=== PATIENT | female | born 1950 | race Caucasian/White ===

== ENCOUNTER → 2016-03-09 | Outpatient (CLI) | payer MEDICARE | LOC: GMAL 11:38 | PROVIDERS: ATTEND Family Medicine | DX: K85.90 Acute pancreatitis without necrosis or infection, unspecified (principal) ==

== ENCOUNTER → 2016-03-21 | Outpatient (CLI) | payer MEDICARE ==
--- NOTE | 2016-03-21 14:48 | MRI ---
EXAM DESCRIPTION: MR ABDOMEN WITHOUT IV CONTRAST CLINICAL HISTORY: 66 y/o F, ABD PAIN COMPARISON: Ultrasound from May 08, 2014. TECHNIQUE: Multi planar, multi sequence imaging of the abdomen was performed without contrast as per the MRCP protocol. Rotational 3D MIP images of the biliary tree were provided for assessment. FINDINGS: There is hepatomegaly. The liver measures greater than 19 cm in diameter. No definitive fatty infiltration at this time on the in and out phase images. The spleen is enlarged measuring 12-13 cm in diameter. The liver and the spleen demonstrate normal signal intensity. The pancreas is unremarkable. Bilateral adrenal glands are unremarkable. Bilateral kidneys demonstrate no evidence of obstruction or definitive mass. Left lower pole renal cyst noted. Diffusion sequences show no evidence of abnormal diffusion on today's study. There are a few small lymph nodes noted within the retroperitoneum. MRCP demonstrates no filling defect on today's exam. There is metallic artifact from patient's surgical clips seen within the gallbladder fossa. IMPRESSION: Patient is status post cholecystectomy. The common bile duct is prominent on today's exam as it was on the prior ultrasound. It measures 6 mm in diameter. No evidence of choledocholithiasis at this time. There is a metallic clip seen within the gallbladder fossa resulting in a small filling defect on the rotational MIP images. Hepatomegaly and splenomegaly. Incidentally noted the patient may have a syrinx of the thoracic spinal cord. Electronically signed by: Ed Burns MD 03/21/2016 14:47
== END ==
LOC: MRI 09:12
DX: R10.11 Right upper quadrant pain (principal); K74.60 Unspecified cirrhosis of liver; R74.8 Abnormal levels of other serum enzymes; R74.0 Nonspecific elevation of levels of transaminase and lactic acid dehydrogenase [LDH]; R16.2 Hepatomegaly with splenomegaly, not elsewhere classified; Z90.49 Acquired absence of other specified parts of digestive tract

== ENCOUNTER → 2016-03-27 | Outpatient (CLI) | payer MEDICARE | LOC: GMAL 18:41 | PROVIDERS: ATTEND Family Medicine | DX: K85.90 Acute pancreatitis without necrosis or infection, unspecified (principal) ==

== ENCOUNTER → 2017-01-03 | Outpatient (CLI) | payer MEDICARE | LOC: GMA 10:37 | PROVIDERS: ATTEND Family Medicine | DX: D51.3 Other dietary vitamin B12 deficiency anemia (principal); E55.9 Vitamin D deficiency, unspecified ==

== ENCOUNTER → 2017-01-11 | Outpatient (CLI) | payer MEDICARE | END | disposition home or self-care (01) | LOC: GMAL 11:02 | PROVIDERS: ATTEND Family Medicine | DX: E03.9 Hypothyroidism, unspecified (principal) ==

== ENCOUNTER → 2017-05-02 | Outpatient (CLI) | payer MEDICARE | LOC: GMAL 10:52 | PROVIDERS: ATTEND Family Medicine | DX: E55.9 Vitamin D deficiency, unspecified (principal) ==

== ENCOUNTER → 2017-08-13 | Outpatient (CLI) | payer MEDICARE | LOC: SL 19:17 | PROVIDERS: ATTEND Family Medicine | DX: G47.33 Obstructive sleep apnea (adult) (pediatric) (principal) ==

== ENCOUNTER → 2018-04-04 | Outpatient (CLI) | payer MEDICARE ==
--- NOTE | 2018-04-04 16:43 | MRI ---
EXAM DESCRIPTION: Brain w/o Contrast: MRI. CLINICAL HISTORY: R53.1 COMPARISON: MRI scan cervical spine on the same visit. TECHNIQUE: Multiplanar, high-field MRI unit, multiple diffusion sequences, multiple conventional sequences without contrast. FINDINGS: Bilateral focus of hyperintense FLAIR and T2-weighted signal in the periventricular white matter abutting the bilateral frontal horns. More left than right. No hemorrhage, no cerebral edema, no mass-effect. Small focus of hyperintense T2 and T1 signal in the right anterior basal ganglia. No hemorrhage, no cerebral edema, no mass effect, no diffusion restriction. Normal signal in the brainstem and cerebellar hemispheres. No hemorrhage, no cerebral edema, no mass-effect. Concordance of the diffusion and non-diffusion sequences with no diffusion restriction. Cortical sulci, ventricles, and other CSF spaces, and the subdural spaces are normally configured for patients age.. No effacement or displacement. No midline shift. No extra-axial hemorrhage. Normal flow signal void in the major vessels of the [place], and the venous sinuses. Left vertebral artery is dominant. IACs are symmetric bilaterally. No fluid in the bilateral mastoid air cells. No mass effect in the bilateral cerebellopontine angles. Pituitary gland occupies only the base of sella, which contains mostly CHF. Base of the cerebellar tonsils is at the level of the foramen magnum. Muco- periosteal thickening in the bilateral paranasal sinuses, also right maxillary antrum. The bony calvarium is intact. IMPRESSION: 1. Small focus of white matter signal change anterior right basal ganglia and in the periventricular white matter abutting the bilateral frontal horns. Most likely cerebral microvascular disease or age-related. No hemorrhage, no mass effect, no diffusion restriction. No extra-axial hemorrhage or fluid collection. 2. Normal noncontrast MRI diffusion study with no evidence of acute or subacute infarction. Electronically signed by: Jose Zambrano MD 04/04/2018 4:41 PM IT ARCHITECTURE CONSULTANT
--- NOTE | 2018-04-05 09:11 | MRI ---
EXAM DESCRIPTION: Cervical Spine: MRI. CLINICAL HISTORY: 68 years Female M54.12 COMPARISON: Cervical TECHNIQUE: Multiplanar, high-field MRI, multiple sequences, non-contrast Cervical spine. FINDINGS: C2-C3: No disc desiccation or bulging. Disc space maintained. Arthrosis left facet joint narrowing the left neural foramen. Canal and right neuroforamen are patent. C3-4: Normal signal in the disc and disc space preserved. No bulging posterior minimal bulging anterior. Arthrosis of the right facet joint and narrowing of the right neural foramen. Left neuroforamen and canal are patent. C4-5: Disc desiccation with disc space maintained. Anterior bulging. Posterior midline bulge 3 mm abutting the cord. Mild canal narrowing. Right neuroforamen patent. Left uncinate spur and hypertrophic arthrosis left facet joint with moderate left neural foraminal narrowing. C5-6: Disc desiccation but no disc space loss. Anterior bulging. Posterior bulging 3 mm abutting the cord. Mild canal narrowing. Small uncinate spur on the right. Hypertrophic arthrosis left facet joint. Bilateral mild neural foraminal narrowing C6-7: Disc desiccation with disc space preserved. Posterior midline and left paracentral disc protrusion impressing on the cord and abutting the left C7 nerve. Left paracentral mild canal stenosis. Bilateral uncinate spurs. Facet joints are unremarkable. Bilateral mild neural foraminal narrowing. C7-T1: Disc desiccation and minimal disc space loss. Posterior midline and left paracentral focal disc bulge 3 mm almost abutting the cord. Mild canal narrowing. Disc bulge also into the left neural foramen which is moderately narrowed. And contains a Perineural cyst. Similar cyst in the right neural foramen which is patent. Normal signal in the T1-T2 disc with no bulging. Disc spaces preserved. Canal and neural foramina are patent. Facet joints unremarkable. Perineural cyst in the right neural foramen. Spinal alignment reduced lordosis. No cord compression or cord edema. Atlantoaxial joint minimally enlarged.. Base of the cerebellar tonsils is above the foramen magnum. Paravertebral soft tissues unremarkable. Vertebral bodies are not compressed at any level. Normal marrow signal in the remaining vertebral bodies and the posterior elements. IMPRESSION: 1. Left paracentral C6-7 posterior disc protrusion impressing on the cord and abutting the left C7 nerve. Correlate for left C7 radiculopathy. Mild left paracentral canal stenosis. 2. Posterior bulging C5-6 disc abutting the cord in the midline. No definite nerve impingement. 3. Left paracentral and midline posterior focal bulge of the C7-T1 disc. Bilateral perineural cysts in the neuroforamina. Correlate for bilateral C8 radiculopathy. 4. Posterior bulging C4-5 disc and moderate narrowing of the left neural foramina. Electronically signed by: Jose Zambrano MD 04/05/2018 9:09 AM [facility]
== END ==
LOC: MRI 11:29
PROVIDERS: ATTEND Family Medicine
DX: R53.1 Weakness (principal); M50.121 Cervical disc disorder at C4-C5 level with radiculopathy; M50.122 Cervical disc disorder at C5-C6 level with radiculopathy; M50.123 Cervical disc disorder at C6-C7 level with radiculopathy; M50.13 Cervical disc disorder with radiculopathy, cervicothoracic region

== ENCOUNTER 2018-12-03 08:58 | Emergency (ER) | payer MEDICARE ==
--- NOTE | 2018-12-03 09:23 | ED.PDOC ---
History of Present Illness - General Chief Complaint: Abdominal Pain Stated Complaint: right sided abdominal pain Time Seen by Provider: 12/03/18 09:18 Information Source: patient, Vital Signs reviewed Exam Limitations: no limitations - History of Present Illness Abdominal Pain Onset Location: RUQ, RLQ Pain Radiation: no radiation Quality: moderate, cramping Timing/Duration: 1 week Improving Factors: other - enema Worsening Factors: nothing Review of Systems - Review of Systems Constitutional: States: see HPI. Denies: fever EENTM: States: see HPI Respiratory: States: no symptoms reported Cardiology: States: no symptoms reported Genitourinary: Denies: dysuria, hematuria Musculoskeletal: States: no symptoms reported Skin: States: no symptoms reported Neurological: States: no symptoms reported Endocrine: States: no symptoms reported Hematologic/Lymphatic: States: no symptoms reported All other Systems: Reviewed and Negative Past Medical History (General) - Patient Medical History Hx Stroke: No Hx Dementia: No Hx Asthma: No Hx of COPD: No Hx Cardiac Disorders: No Hx Congestive Heart Failure: No Hx Hypertension: Yes Hx Thyroid Disease: Yes Hx Diabetes: Yes - Borderline Hx MRSA: No Surgical History: appendectomy, cholecystectomy, Hysterectomy - Vaccination History Hx Tetanus, Diphtheria Vaccination: No Hx Influenza Vaccination: No Hx Pneumococcal Vaccination: Yes - Social History Hx Tobacco Use: No Hx Alcohol Use: No Hx Substance Use: No Hx Substance Use Treatment: No Hx Depression: Yes - Female History Patient : No Family Medical History - Family History Mother Family History: Unknown Hx Family Hypertension: Yes Hx Cardiac Disease: Yes Hx Family;Other: Rheumatoid arthritis Physical Exam - Physical Exam General Appearance: Alert, No apparent distress Eyes, Ears, Nose, Throat Exam: normal ENT inspection Neck: full range of motion Respiratory: chest non-tender, lungs clear, normal breath sounds, no respiratory distress Cardiovascular/Chest: normal peripheral pulses, regular rate, rhythm, no edema Peripheral Pulses: No deficit Gastrointestinal/Abdominal: soft, abnormal bowel sounds - hyperactive, tenderness - mild to RUQ/RLQ Back Exam: no CVA tenderness Extremity: normal range of motion, non-tender Neurologic: no motor/sensory deficits Skin Exam: normal color Progress - Progress Progress: 12/03/18 11:[address] were reviewed with the patient pertinent for anemia, slight hyponatremia, normal kidney function, urinary mass. There were no signs of impaction or bowel obstruction which was the original thought. THELMA was performed with nurse Crane and there was no impaction. We discussed that she may have a mild kidney infection causing RUQ and RLQ pain. UA was ordered. She was advised to follow up with Urology. 12/03/18 11:48 UA consistent with UTI/pyelo. The granddaughter showed up who said the patient also has been having fevers. Patient has skin rash to penicillin. Will give 1 g rocephin here, and discharge with Cefdinir from prior urine culture results. - Results/Orders Results/Orders: "Reporting MD: Kike Dominguez Electronic Data Processing Auditor date: Dictation date: EXAM DESCRIPTION: Abdoment/Pelvis w/o Contrast CLINICAL HISTORY: 68 years Female, Right sided abdominal pain, concern for obstructio COMPARISON: CT abdomen pelvis dated February 25, 2016. TECHNIQUE: Contiguous 3 mm axial images were obtained from the lung bases to the level of proximal femora without the administration of intravenous or oral contrast. Sagittal and coronal reconstructions were reviewed. This exam was performed according to our de partmental dose-optimization program, which includes automated exposure control, adjustment of the mA and/or kV according to patient size and/or use of iterative reconstruction technique. FINDINGS: The visualized lower thorax demonstrates bibasilar atelectatic changes left worse than right. Mild interstitial lung changes are also noted at the left lung base likely appears chronic. No pleural or pericardial effusions. Limited evaluation of the solid abdominal organs due to lack of intravenous contrast. The liver appears grossly unremarkable with no intrahepatic ductal dilatation. The gallbladder is surgically absent. Mild splenomegaly is again noted measuring up to 14 cm in AP dimension, otherwise appears unremarkable. The pancreas and both adrenal glands appear grossly unremarkable. Both kidneys appear symmetric in size with no evidence of hydronephrosis, nephrolithiasis, hydroureter or perinephric fluid collections. Again noted are moderate bilateral perinephric stranding, appears slightly worse than prior exam dated February 25, 2016 could be sequela of chronic changes. Mild circumferential wall thickening the distal esophagus could be sequela of reflux esophagitis. The stomach is collapsed. The small and large bowel loops appear grossly unremarkable with no abnormal dilatation or wall thickening. The appendix is not visualized, however no surrounding inflammatory changes noted in the right lower quadrant. No free intraperitoneal air or fluid. No enlarged abdominal or retroperitoneal lymphadenopathy. The abdominal aorta is not visible with the moderate atherosclerotic calcifications. The urinary bladder is a moderately distended and appears grossly unremarkable. Interval development of a 1.2 x 1.0 x 1.0 cm hyper dense mass along the posterior aspect of the dome of the urinary bladder closely abutting the posterior wall anteriorly and closely abutting the pubic symphysis posteriorly is noted. This was not noted on prior CT abdomen pelvis dated February 2016. The uterus appears atrophic. The ovaries are not visualized. No free fluid in the pelvis. Review of the bone windows demonstrate no acute osseous abnormality. Diffuse osteopenia of the visualized bones noted. IMPRESSION: 1. Slight interval worsening of the moderate bilateral perinephric stranding in comparison to the prior CT abdomen pelvis February 25, 2016 could be sequela of chronic changes, however acute pyelonephritis cannot be completely excluded. Clinical correlation with urinalysis is recommended. 2. No other acute intra-abdominal process. 3. Interval development of a 1.2 cm hyperdense mass along the posterior aspect of dome of the urinary bladder closely abutting the posterior anteriorly and the pubic symphysis posteriorly is of indeterminate etiology. A urology consultation is recommended for further evaluation of this mass. 4. Mild splenomegaly. Electronically signed by: Kike Dominguez MD 12/03/2018 11:00 AM CDT " Laboratory Results - last 24 hr 12/03/18 12/03/18 09:31 09:31 WBC 3.6 L RBC 3.72 L Hgb 10.8 L Hct 32.2 L MCV 86.6 MCH 29.2 MCHC 33.7 RDW 14.8 H Plt Count 112 L MPV 8.0 Absolute Neuts (auto) Not Reportable Absolute Lymphs (auto) Not Reportable Absolute Monos (auto) Not Reportable Absolute Eos (auto) Not Reportable Neutrophils % Not Reportable Neutrophils % (Manual) 52.0 Lymphocytes % Not Reportable Lymphocytes % (Manual) 32.0 Monocytes % Not Reportable Monocytes % (Manual) 9.0 Eosinophils % Not Reportable Basophils % Not Reportable Band Neutrophils 6.0 H Eosinophils 1.0 Sodium 133 L Potassium 4.7 Chloride 103 Carbon Dioxide 20 L Anion Gap 14.7 BUN 23 H Creatinine 1.10 BUN/Creatinine Ratio 20.9 H Random Glucose 115 H Serum Osmolality 271.0 L Calcium 9.0 Total Bilirubin 0.6 AST 27 ALT 20 Alkaline Phosphatase 41 L Serum Total Protein 8.6 H Albumin 4.3 Globulin 4.3 H Albumin/Globulin Ratio 1.0 L Departure - Departure Clinical Impression: Pyelonephritis of right kidney, Mass of urinary bladder Time of Disposition: 11:49 Disposition: Discharge to Home or Self Care Condition: Fair Departure Forms: ED Discharge - Pt. Copy, Patient Portal Self Enrollment Instructions: DI for Abdominal Pain-Adult Diet: resume usual diet Referrals: Carmelo Mackey III, MD [Primary Care Provider] - 1 Week (For pyelonephritis and bladder mass. ) Prescriptions: Cefpodoxime Proxetil 200 mg PO BID 9 Days #18 tab Home Medications: Ambulatory Orders Lisinopril 40 mg PO DAILY 11/09/13 Levothyroxine Sodium 75 mcg PO DAILY 02/25/16 Sertraline HCl [Zoloft] 100 mg PO BID 02/25/16 Amlodipine Besylate 5 mg PO DAILY 12/03/18 Cefpodoxime Proxetil 200 mg PO BID 9 Days #18 tab 12/03/18 Cholecalciferol [Vitamin D3] 1,000 unit PO DAILY 12/03/18 Metformin HCl [Metformin HCl ER] 500 mg PO DAILY 12/03/18
--- NOTE | 2018-12-03 11:02 | CT ---
EXAM DESCRIPTION: Abdoment/Pelvis w/o Contrast CLINICAL HISTORY: 68 years Female, Right sided abdominal pain, concern for obstructio COMPARISON: CT abdomen pelvis dated February 25, 2016. TECHNIQUE: Contiguous 3 mm axial images were obtained from the lung bases to the level of proximal femora without the administration of intravenous or oral contrast. Sagittal and coronal reconstructions were reviewed. This exam was performed according to our departmental dose-optimization program, which includes automated exposure control, adjustment of the mA and/or kV according to patient size and/or use of iterative reconstruction technique. FINDINGS: The visualized lower thorax demonstrates bibasilar atelectatic changes left worse than right. Mild interstitial lung changes are also noted at the left lung base likely appears chronic. No pleural or pericardial effusions. Limited evaluation of the solid abdominal organs due to lack of intravenous contrast. The liver appears grossly unremarkable with no intrahepatic ductal dilatation. The gallbladder is surgically absent. Mild splenomegaly is again noted measuring up to 14 cm in AP dimension, otherwise appears unremarkable. The pancreas and both adrenal glands appear grossly unremarkable. Both kidneys appear symmetric in size with no evidence of hydronephrosis, nephrolithiasis, hydroureter or perinephric fluid collections. Again noted are moderate bilateral perinephric stranding, appears slightly worse than prior exam dated February 25, 2016 could be sequela of chronic changes. Mild circumferential wall thickening the distal esophagus could be sequela of reflux esophagitis. The stomach is collapsed. The small and large bowel loops appear grossly unremarkable with no abnormal dilatation or wall thickening. The appendix is not visualized, however no surrounding inflammatory changes noted in the right lower quadrant. No free intraperitoneal air or fluid. No enlarged abdominal or retroperitoneal lymphadenopathy. The abdominal aorta is not visible with the moderate atherosclerotic calcifications. The urinary bladder is a moderately distended and appears grossly unremarkable. Interval development of a 1.2 x 1.0 x 1.0 cm hyper dense mass along the posterior aspect of the dome of the urinary bladder closely abutting the posterior wall anteriorly and closely abutting the pubic symphysis posteriorly is noted. This was not noted on prior CT abdomen pelvis dated February 2016. The uterus appears atrophic. The ovaries are not visualized. No free fluid in the pelvis. Review of the bone windows demonstrate no acute osseous abnormality. Diffuse osteopenia of the visualized bones noted. IMPRESSION: 1. Slight interval worsening of the moderate bilateral perinephric stranding in comparison to the prior CT abdomen pelvis February 25, 2016 could be sequela of chronic changes, however acute pyelonephritis cannot be completely excluded. Clinical correlation with urinalysis is recommended. 2. No other acute intra-abdominal process. 3. Interval development of a 1.2 cm hyperdense mass along the posterior aspect of dome of the urinary bladder closely abutting the posterior anteriorly and the pubic symphysis posteriorly is of indeterminate etiology. A urology consultation is recommended for further evaluation of this mass. 4. Mild splenomegaly. Electronically signed by: Kike Dominguez MD 12/03/2018 11:00 AM CDT
[2018-12-03] MEDS ORDERED: cefTRIAXone SODIUM 1 GM in SODIUM CHL 0.9% 50ML MIN-BAG+ 50 ML IVPB ONE (11:42)
[2018-12-03] MEDS ORDERED: cefTRIAXone SODIUM 1 GM VIAL IM ONE (11:53)
[2018-12-03] MEDS ORDERED: LIDOCAINE 1% 10 ML VIAL INJ ONE (11:53)
[2018-12-03 12:07] VITALS: BP 147/78; TEMP 97.8; O2SAT 95
== END 2018-12-03 12:08 | disposition home or self-care (01) ==
LOC: ER 08:58
DX: N12 Tubulo-interstitial nephritis, not specified as acute or chronic (principal); N32.89 Other specified disorders of bladder; F32.9 Major depressive disorder, single episode, unspecified; I10 Essential (primary) hypertension; E07.9 Disorder of thyroid, unspecified; R73.03 Prediabetes; Z90.49 Acquired absence of other specified parts of digestive tract
CPT/HCPCS: 36415; 74176; 80053; 81001; 85007; 85025; 87077; 87086; 87186; J0696

== ENCOUNTER → 2018-12-25 | Outpatient (CLI) | payer MEDICARE | LOC: NC 09:03 | PROVIDERS: ATTEND Family Medicine | DX: E11.40 Type 2 diabetes mellitus with diabetic neuropathy, unspecified (principal); I10 Essential (primary) hypertension; R30.0 Dysuria; D51.3 Other dietary vitamin B12 deficiency anemia; E55.9 Vitamin D deficiency, unspecified ==

== ENCOUNTER 2019-08-31 19:10 | Observation (INO) | payer MEDICARE ==
[2019-08-31] MEDS ORDERED: SODIUM CHLORIDE 0.9% 1000ML 1,000 ML IVS ONE (19:55)
[2019-08-31] MEDS ORDERED: IBUPROFEN 200 MG TAB PO ONE (19:57)
[2019-08-31] MEDS ORDERED: levoFLOXacin 500MG IV 500 MG in PREMIX BAG 1 BAG IVPB ONE (21:07)
[2019-08-31] MEDS ORDERED: metroNIDAZOLE IV PREMIX 500MG 500 MG in PREMIX BAG 1 BAG IVPB ONE (21:07)
[2019-08-31] MEDS ORDERED: ACETAMINOPHEN 325 MG TAB PO ONE (21:38)
[2019-08-31] MEDS ORDERED: KCL 20 MEQ/NS 1,000 ML IVS ONE (21:39)
--- NOTE | 2019-08-31 21:48 | ED.PDOC ---
History of Present Illness - General Chief Complaint: Abdominal Pain Stated Complaint: fever, abdomen pain, diarrhea Time Seen by Provider: 08/31/19 19:37 Source: patient Exam Limitations: no limitations - History of Present Illness Initial Comments: The patient is a 69-year-old female presented emergency room secondary to 36 hours worth of diarrhea and abdominal cramping. No blood in the stool. Diffuse abdominal discomfort. No point tenderness. No rebound or peritoneal signs. No palpable masses. She does have a temperature of 101.6 upon arrival here. The patient reports that she feels dehydrated so she showed up for evaluation. The patient has no known coronavirus exposure and no respiratory symptoms. She reports that she is getting dizzy when she is going to stand up. No history of any diverticulitis. She reports more than 60 episodes of diarrhea over the last 36 hours. Timing/Duration: other - 36 hours Severity: moderate Improving Factors: nothing Worsening Factors: nothing Associated Symptoms: loss of appetite, malaise, weakness Allergies/Adverse Reactions: Allergies Penicillins Allergy (Verified 08/31/19 19:42) Home Medications: Ambulatory Orders Lisinopril 40 mg PO DAILY 11/09/13 Levothyroxine Sodium 75 mcg PO DAILY 02/25/16 Sertraline HCl [Zoloft] 100 mg PO BID 02/25/16 Cholecalciferol [Vitamin D3] 1,000 unit PO DAILY 12/03/18 Metformin HCl [Metformin HCl ER] 500 mg PO DAILY 12/03/18 Cyanocobalamin [B12] 1,000 mcg PO DAILY 08/31/19 Eye Formula 1 tablet PO DAILY 08/31/19 Probiotic Product [Probiotic] 1 tab PO DAILY 08/31/19 Sennosides-Docusate Sodium [Cvs Stool Softener Plus S 8.6-50 mg] 1 tab PO PRN 08/31/19 Review of Systems - Review of Systems Constitutional: States: malaise, weakness - Generalized EENTM: States: no symptoms reported Respiratory: States: no symptoms reported Cardiology: States: no symptoms reported Gastrointestinal/Abdominal: States: abdominal pain, diarrhea Genitourinary: States: no symptoms reported Musculoskeletal: States: no symptoms reported Skin: States: no symptoms reported Neurological: States: no symptoms reported - Except dizziness with standing Endocrine: States: no symptoms reported All other Systems: No Change from Baseline Past Medical History (General) - Patient Medical History Hx Seizures: No Hx Stroke: No Hx Dementia: No Hx Asthma: No Hx of COPD: No Hx Cardiac Disorders: No Hx Congestive Heart Failure: No Hx Pacemaker: No Hx Hypertension: Yes Hx Thyroid Disease: Yes Hx Diabetes: Yes - Borderline Hx Gastroesophageal Reflux: No Hx Renal Disease: No Hx Cancer: No Hx of HIV: No Hx Hepatitis C: No Hx MRSA: No Surgical History: cholecystectomy, Hysterectomy - Vaccination History Hx Tetanus, Diphtheria Vaccination: No Hx Influenza Vaccination: No Hx Pneumococcal Vaccination: No - Social History Hx Tobacco Use: Yes Hx Alcohol Use: No Hx Substance Use: No Hx Substance Use Treatment: No Hx Depression: Yes - Female History Patient : No Family Medical History - Family History Mother Family History: Unknown Hx Family Hypertension: Yes Hx Cardiac Disease: Yes Hx Family;Other: Rheumatoid arthritis Physical Exam - Physical Exam General Appearance: Alert, No apparent distress, Ill Appearing Eye Exam: bilateral normal Ears, Nose, Throat: hearing grossly normal, normal ENT inspection Neck: full range of motion, supple Respiratory: lungs clear, normal breath sounds, no respiratory distress, no accessory muscle use Cardiovascular/Chest: normal peripheral pulses, no edema, tachycardia - Sinus tachycardia Peripheral Pulses: radial,right: 2+, radial,left: 2+ Gastrointestinal/Abdominal: soft, other - Diffuse discomfort to palpation. Bowel sounds are present throughout. No rebound or peritoneal signs. No palpable mass. Rectal Exam: deferred Back Exam: no CVA tenderness, no vertebral tenderness Extremity: normal range of motion, non-tender, normal inspection, no pedal edema, normal capillary refill Neurologic: lab rn II-XII nml as tested, alert, normal mood/affect, oriented x 3 Skin Exam: normal color Comments: Vital Signs - 24 hr 08/31/19 08/31/19 08/31/19 19:17 20:00 21:00 Temperature 101.9 F H Pulse Rate [ 116 H 111 H 100 H monitor] Respiratory 20 18 16 Rate Blood Pressure 170/69 155/83 149/68 [Left Arm] O2 Sat by Pulse 98 95 97 Oximetry 08/31/19 21:37 Temperature 101.5 F H Pulse Rate [ monitor] Respiratory Rate Blood Pressure [Left Arm] O2 Sat by Pulse Oximetry Progress - Progress Progress: 08/31/19 21:49 The patient is a 69-year-old female presented emergency room secondary to fever and diarrhea. This is most likely a colitis given the symptoms. The patient is been placed on metronidazole and ciprofloxacin. She has received IV fluids for acute renal failure. She is also receiving some potassium for mild hypokalemia. The patient will be admitted overnight for continued antibiotics and IV hydration. She has received Motrin and Tylenol for the fever. Admit for continued care. [email or web address] [id number] - Results/Orders Results/Orders: Radiology read on the acute abdominal series is still pending secondary to technical difficulties. However I see no evidence of any free air, obstruction, and I see no evidence of acute pathology of the chest. There may be a few small air-fluid levels in the abdomen. Laboratory Tests 08/31/19 08/31/19 08/31/19 19:30 20:10 20:10 WBC 4.1 L RBC 3.40 L Hgb 10.4 L Hct 30.0 L MCV 88.0 MCH 30.7 MCHC 34.9 RDW 15.6 H Plt Count 68 L MPV 8.4 Absolute Neuts (auto) 3.00 Absolute Lymphs (auto) 0.80 L Absolute Monos (auto) 0.20 Absolute Eos (auto) 0.00 Absolute Basos (auto) 0.00 Neutrophils % 73.6 Lymphocytes % 20.2 Monocytes % 6.0 Eosinophils % 0.0 L Basophils % 0.2 Sodium 135 Potassium 3.4 L Chloride 105 Carbon Dioxide 20 L Anion Gap 13.4 BUN 30 H Creatinine 1.36 H BUN/Creatinine Ratio 22.1 H Random Glucose 150 H Serum Osmolality 279.1 Lactic Acid Calcium 8.9 Magnesium Total Bilirubin 0.6 AST 25 ALT 20 Alkaline Phosphatase 43 Serum Total Protein 7.9 Albumin 4.3 Globulin 3.6 H Albumin/Globulin Ratio 1.2 Amylase 75 Lipase Urine Color Yellow Urine Appearance Clear Urine pH 5.5 Ur Specific [place] 1.020 Urine Protein 30 Urine Glucose (UA) Negative Urine Ketones Negative Urine Blood Negative Urine Nitrite Negative Urine Bilirubin Negative Urine Urobilinogen 0.2 Ur Leukocyte Esterase Negative Urine RBC 0 Urine WBC 1-3 Ur Epithelial Cells 3-5 Urine Bacteria Rare 08/31/19 08/31/19 20:10 20:10 WBC RBC Hgb Hct MCV MCH MCHC RDW Plt Count MPV Absolute Neuts (auto) Absolute Lymphs (auto) Absolute Monos (auto) Absolute Eos (auto) Absolute Basos (auto) Neutrophils % Lymphocytes % Monocytes % Eosinophils % Basophils % Sodium Potassium Chloride Carbon Dioxide Anion Gap BUN Creatinine BUN/Creatinine Ratio Random Glucose Serum Osmolality Lactic Acid 1.4 Calcium Magnesium 1.8 Total Bilirubin AST ALT Alkaline Phosphatase Serum Total Protein Albumin Globulin Albumin/Globulin Ratio Amylase Lipase 35 Urine Color Urine Appearance Urine pH Ur Specific [place] Urine Protein Urine Glucose (UA) Urine Ketones Urine Blood Urine Nitrite Urine Bilirubin Urine Urobilinogen Ur Leukocyte Esterase Urine RBC Urine WBC Ur Epithelial Cells Urine Bacteria Departure - Departure Clinical Impression: Colitis Acute renal failure Qualifiers: Acute renal failure type: unspecified Qualified Code(s): N17.9 - Acute kidney failure, unspecified Disposition: Admit Patient Condition: Poor Departure Forms: ED Discharge - Pt. Copy, Patient Portal Self Enrollment Referrals: Carmelo Mackey III, MD [Primary Care Provider] - 1-2 Weeks Home Medications: Ambulatory Orders Lisinopril 40 mg PO DAILY 11/09/13 Levothyroxine Sodium 75 mcg PO DAILY 02/25/16 Sertraline HCl [Zoloft] 100 mg PO BID 02/25/16 Cholecalciferol [Vitamin D3] 1,000 unit PO DAILY 12/03/18 Metformin HCl [Metformin HCl ER] 500 mg PO DAILY 12/03/18 Cyanocobalamin [B12] 1,000 mcg PO DAILY 08/31/19 Eye Formula 1 tablet PO DAILY 08/31/19 Probiotic Product [Probiotic] 1 tab PO DAILY 08/31/19 Sennosides-Docusate Sodium [Cvs Stool Softener Plus S 8.6-50 mg] 1 tab PO PRN 08/31/19 Decision To Admit - Decistion To Admit Decision to Admit Reason: Medical Nature Decision to Admit Date: 08/31/19 Decision to Admit Time: 21:51
--- NOTE | 2019-08-31 21:55 | RAD ---
EXAM DESCRIPTION: Abdomen Series CLINICAL HISTORY: 69 years Female, abd cramping and diarrhea 2 days COMPARISON: None. TECHNIQUE: Frontal chest with upright and supine abdominal images. FINDINGS: The lungs are well expanded and clear. There is no pleural effusion. Normal heart size. Normal mediastinal contours. Cholecystectomy clips are present. There are scattered air-fluid levels throughout the abdomen. The visible bowel loops are normal in caliber. Intraperitoneal free air. No mass effect or organomegaly. IMPRESSION: Mildly abnormal bowel gas pattern which may reflect enteritis or mild ileus at this time. Electronically signed by: Jose Clark MD 08/31/2019 9:54 PM CDT
[2019-08-31] MEDS ORDERED: ONDANSETRON INJ 4 MG/2 ML VIAL IV PRN (22:52)
[2019-08-31] MEDS ORDERED: ACETAMINOPHEN 325 MG TAB PO PRN (22:52)
[2019-08-31] MEDS ORDERED: SODIUM CHLORIDE 0.9% (FLUSH) 10 ML SYG IV PRN (22:52)
[2019-08-31] MEDS ORDERED: GLUCAGON INJ 1 MG VIAL SUBCU PRN (22:59)
[2019-08-31] MEDS ORDERED: DEXTROSE 50% 25 GM/50 ML SYG IV PRN (22:59)
[2019-08-31] MEDS ORDERED: IV SET AND CAP CHANGE INJ INJ SCH (23:00)
[2019-09-01] MEDS: INSULIN LISPRO 100 UNITS/ML PEN SUBCU SCH ×3 (00:10→11:53)
[2019-09-01] MEDS ORDERED: metroNIDAZOLE IV PREMIX 500MG 100 ML IVPB ONE (03:32)
[2019-09-01] MEDS: metroNIDAZOLE IV PREMIX 500MG 500 MG in PREMIX BAG 1 BAG IVPB SCH ×2 (04:54→13:36)
[2019-09-01] MEDS ORDERED: levoFLOXacin 500MG IV 100 ML IVPB ONE (08:18)
--- NOTE | 2019-09-01 08:42 | RAD ---
EXAM DESCRIPTION: Abdomen Series CLINICAL HISTORY: possible illeus COMPARISON: Chest x-ray and regress of the abdomen August 31, 2019. CT abdomen pelvis December 03, 2018. CT abdomen pelvis February 25, 2016. FINDINGS: No acute cardiopulmonary disease is demonstrated on the single view of the chest. Calcium hydroxyapatite deposition of the right rotator cuff. Nonspecific bowel gas pattern is present within the abdomen pelvis. Cholecystectomy clips are present. The liver silhouette is enlarged which is been present since the comparison CT abdomen pelvis February 25, 2016. Atherosclerotic disease. No nephrolithiasis is demonstrated. Degenerative changes seen within the hips and the lumbar spine. IMPRESSION: No acute radiographic process. Electronically signed by: Shailesh Valerio MD 09/01/2019 8:40 AM CDT
[2019-09-01] MEDS ORDERED: ENOXAPARIN SODIUM 40 MG/0.4 ML SYG SUBCU SCH (09:00)
[2019-09-01] MEDS ORDERED: SERTRALINE HCL 50 MG TAB PO SCH (09:00)
[2019-09-01] MEDS ORDERED: levoFLOXacin 500MG IV 500 MG in PREMIX BAG 1 BAG IVPB SCH (09:00)
[2019-09-01] MEDS ORDERED: LOPERAMIDE CAP 2 MG CAP PO ONE (13:13)
[2019-09-01 13:52] VITALS: O2SAT 98
[2019-09-01 16:23] VITALS: BP 154/71; TEMP 99.3
--- NOTE | 2019-09-01 18:11 | SSS ---
SUPERVISING PHYSICIAN: Dontae Fox MD DATE OF ADMISSION: 08/30/28 DATE OF DISCHARGE: 09/01/19 CHIEF COMPLAINT: Abdominal pain with fever and diarrhea. HISTORY OF PRESENT ILLNESS: Ms. Strickland is a 69-year-old female patient who presented to the Emergency Room last night with complaint of 36 hours of diarrhea and abdominal cramping. She denied any blood in her stools. She does endorse that she has been having these symptoms usually monthly for the last three months. In the ER, she was without any notable peritoneal or rebound signs. She did have a fever on admission to 101.6. The patient's biggest complaint was that she just felt dehydrated and wanted to be evaluated. She said she lives with her son, but no one has been able to check on her because they are afraid of breaking social isolation due to the COVID-19 pandemic. She denied any actual exposure to any COVID-19 patients or respiratory symptoms. She does note that she is a little dizzy when she stands up. Her initial laboratory studies did show an increased creatinine at 1.36 with an elevated BUN at 30. Potassium is a little low at 3.4. Labs show normal lactic acid, liver functions, lipase, amylase are all normal. C. difficile in the ER was negative and she was started on Levaquin and Flagyl. She did have an abdominal x-ray initially in the ER and per radiologic interpretation showed mildly abnormal bowel gas pattern which could reflect enteritis versus ileus. CBC showed white count 4,100 without a left shift. Her hemoglobin was 10.4 and hematocrit 30.0. Given her bump in creatinine and some dehydration with a large volume of diarrhea, the patient was placed in observation for fluid management, rehydration and close monitoring given that she was also running a fever. She was placed in observation in stable condition. PAST MEDICAL HISTORY: 1. Hypertension. 2. Rheumatoid arthritis. 3. Diabetes mellitus, type 2. 4. Hypothyroidism on supplementation. 5. Previous left cerebrovascular accident in 2018. 6. Breast cancer diagnosed in 1998, stage 1, in remission. 7. Depression. 8. Obstructive sleep apnea utilizing CPAP at home. PAST SURGICAL HISTORY: 1. Cholecystectomy in 1986. 2. Skin graft surgery for third degree her. 3. Lumpectomy for right sided breast cancer with a radical mastectomy in 1998. 4. Hysterectomy in 1989. 5. Knee surgery. 6. Colonoscopy in 2015 with positive H. pylori and mild gastritis. 7. Echocardiogram in 2018 shows grade 1 diastolic dysfunction with ejection fraction of 60%. 8. Nuclear stress test showed ejection fraction 78% with no evidence of ischemia or infarction in 2018. HOME MEDICATIONS: 1. Melatonin 10 mg as needed. 2. Levothyroxine 75 mcg daily. 3. Stool softener 1 tablet daily. 4. Vitamin B12. 5. Probiotic as needed. 6. Eye drops as needed. 7. Lisinopril 40 mg daily. 8. Vitamin D3 1000 daily. 9. Zoloft 100 mg b.i.d. 10. Metformin extended release 500 mg daily. ALLERGIES: PENICILLIN. FAMILY HISTORY: Father with hypertension, lung cancer, renal failure. Mother secondary to congestive heart failure. SOCIAL HISTORY: The patient is a homemaker. She is and lives with her son. She has never smoked tobacco, does not drink or any use any illicit drugs. REVIEW OF SYSTEMS: CONSTITUTIONAL: Positive for generalized weakness, general malaise and fever. HEENT: Negative for headache, sore throats, earaches, nasal congestion, vision changes. RESPIRATORY: Negative for coughing, wheezing, shortness of breath. CARDIOVASCULAR: Negative for chest pain, palpitations or syncopal episodes. GASTROINTESTINAL: As noted in history of present illness, mild abdominal pain with persistent diarrhea. No nausea or vomiting reported. MUSCULOSKELETAL: Negative for arthralgias or joint swelling. SKIN: Negative for lesions, rashes or unexplained changes. NEUROLOGIC: Negative for ataxia, seizures, syncopal episode, paresthesias, but has history of CVA with some reported right sided weakness which is not reported at this point. She does report some dizziness with standing which resolves with sitting. HEMATOLOGIC: Denies easy bruising, unexplained bleeding or transfusion reactions. PHYSICAL EXAMINATION: VITAL SIGNS: On admission, temperature 101.9, pulse 116, blood pressure 170/69, respirations 20, saturation 98% on room air. Discharge vital signs showed temperature 98.7, pulse 95, blood pressure 147/76, respirations 16, saturation 98% on room air. GENERAL: The patient was resting comfortably, did not appear to be in any acute distress. She looks well-nourished, well-hydrated. She is alert. HEENT: Tympanic membranes clear bilaterally. Oropharynx is pink, moist without any lesions. NECK: Supple, nontender with full range of motion. No jugular venous distention noted. RESPIRATORY: Lung sounds are clear to auscultation bilaterally without any rhonchi, wheezes or rales. CARDIOVASCULAR: Regular rate and rhythm without any appreciable murmurs, gallops, or rubs. ABDOMEN: Soft. No appreciable tenderness to palpation. No guarding, no rebound, no peritoneal signs. Bowel sounds hyperactive. RECTAL: Deferred. BACK: Without CVA or paravertebral tenderness. EXTREMITIES: There is no cyanosis, clubbing or edema. NEUROLOGIC: Cranial nerves II-XII are grossly intact. Facial features are symmetrical. Extraocular movements are within normal limits. There is no nystagmus noted. The patient is alert and oriented times three. LABORATORY: CBC on discharge showed white count 3,800, hemoglobin 10.2, hematocrit 29.2 without left shift. Chemistries showed potassium 3.5, chloride a little elevated at 112, BUN down to 24, creatinine normalized from 1.36 to 0.99. Liver functions were all within normal limits. Blood sugars ranged between 90 to 150. Amylase and lipase were normal. Urinalysis showed no evidence of infection. MICROBIOLOGY: Stools cultures pending. C. difficile toxin A and B negative. Blood cultures negative on discharge. Influenza A and B negative. RADIOLOGY: Final on x-ray on discharge of the abdomen per radiologic interpretation showed no acute radiographic process. CONSULTATIONS: General surgery with Dr. Collins. Please see his note for details. HOSPITAL COURSE: Ms. Strickland was admitted for persistent diarrhea with some associated dehydration resulting in some renal insufficiency. She was given fluids and started on antibiotics with Levaquin and Flagyl. She still had a little bit of diarrhea before discharge but was decreasing with Lomotil. She was seen by Dr. Collins who felt the patient was clinically improved and clinically stable enough to discharge to continue with outpatient management. ADMISSION DIAGNOSIS: 1. Acute versus chronic colitis with dehydration secondary to some nausea and vomiting, etiology uncertain with the patient being worked up as an outpatient. 2. Mild sepsis secondary to #1 with the patient being febrile and tachycardic on admission, resolving with fluids, treatment and antibiotics. 3. Acute renal insufficiency secondary to prerenal azotemia from dehydration. 4. History of hypertension, stable. 5. Hypothyroidism on supplementation. 6. History of breast cancer with surgical cure. 7. Previous cerebrovascular accident on the right with reported left sided weakness with no actual deficits noted on admission. 8. Diabetes mellitus, type 2, on metformin, possibly resulting in some of her diarrhea. 9. Depression. 10. Obstructive sleep apnea utilizing CPAP. DISCHARGE DIAGNOSIS: 1. Acute versus chronic colitis with dehydration secondary to some nausea and vomiting, etiology uncertain with the patient being worked up as an outpatient. 2. Mild sepsis secondary to #1 with the patient being febrile and tachycardic on admission, resolving with fluids, treatment and antibiotics. 3. Acute renal insufficiency secondary to prerenal azotemia from dehydration. 4. History of hypertension, stable. 5. Hypothyroidism on supplementation. 6. History of breast cancer with surgical cure. 7. Previous cerebrovascular accident on the right with reported left sided weakness with no actual deficits noted on admission. 8. Diabetes mellitus, type 2, on metformin, possibly resulting in some of her diarrhea. 9. Depression. 10. Obstructive sleep apnea utilizing CPAP. PLAN: Ms. Strickland was admitted for acute dehydration secondary to persistent colitis with diarrhea. She was seen by Dr. Collins who on examination felt like the patient was clinically stable. Her labs improved, renal function improving. She was started on IV fluids and antibiotics including Levaquin and Flagyl which did help with her symptomatology. She was started on sliding scale per protocol. She was advanced on her diet and was tolerating an ADA diet. She was given Lomotil for her diarrhea which was resolving. I did discuss the case with Dr. Collins and Dr. Mackey. The patient was instructed that she will need a workup as an outpatient, but was clinically stable to continue with outpatient management. She was in agreement with that plan of care. She is discharged home to followup with Dr. Collins and Dr. Mackey as scheduled. She is to take Metamucil as instructed by Dr. Mackey and to hold her metformin until she is seen in followup with Dr. Mackey. She is to advance her diet as tolerated and to take a probiotic [id number]. She will be continued on antibiotics with Levaquin and Flagyl for a total of 7 day treatment course which will complete just prior to seeing Dr. Mackey in followup. She is to push fluids to prevent dehydration and was given instructions to return to the ER if she has any concerning symptoms or call Dr. Mackey' office. PRESCRIPTIONS ON DISCHARGE: 1. Levaquin 500 mg, #6, no refills. 2. Flagyl 500 mg 3 times a day, #18, no refills. 3. Probiotic OTC as described. 4. Metamucil OTC as instructed. All other medications other than holding her metformin were continued as is. CONDITION ON DISCHARGE: Stable and improving. DISPOSITION: The patient is discharged home to followup with Dr. Mackey and Dr. Collins. #[id number] [facility]
== END 2019-09-01 18:15 | disposition home or self-care (01) ==
LOC: ER 19:10 → MS 22:00
PROVIDERS: ADMIT Nurse Practitioner Family; ATTEND Nurse Practitioner Family
DX: A41.9 Sepsis, unspecified organism (principal); K52.9 Noninfective gastroenteritis and colitis, unspecified; E86.0 Dehydration; N17.9 Acute kidney failure, unspecified; I10 Essential (primary) hypertension; E03.9 Hypothyroidism, unspecified; I69.354 Hemiplegia and hemiparesis following cerebral infarction affecting left non-dominant side; E11.9 Type 2 diabetes mellitus without complications; F32.9 Major depressive disorder, single episode, unspecified; G47.33 Obstructive sleep apnea (adult) (pediatric); M06.9 Rheumatoid arthritis, unspecified; Z66 Do not resuscitate; Z99.89 Dependence on other enabling machines and devices; Z79.84 Long term (current) use of oral hypoglycemic drugs; Z79.890 Hormone replacement therapy; Z79.899 Other long term (current) drug therapy; Z88.0 Allergy status to penicillin; Z85.3 Personal history of malignant neoplasm of breast; Z90.11 Acquired absence of right breast and nipple; Z90.49 Acquired absence of other specified parts of digestive tract; Z90.710 Acquired absence of both cervix and uterus
CPT/HCPCS: 96366 ×2; 96367; 96365; 96368; 96376; 96372; J1956 ×2; J3490 ×3; J7030; J1650; J3480; 80053 ×2; 82948 ×4; 36415; 82150; 81001; 85025 ×2; 87040 ×2; 87045; 87046; 83690; 83735; 36416 ×3; 87324; 83605; 74019 ×2; 94760; 99285; G0378; 87502; 87449

== ENCOUNTER 2019-09-18 04:25 | Day surgery (SDC) | payer MEDICARE ==
[2019-09-18] MEDS ORDERED: LACTATED RINGERS 1,000 ML ONE (06:36)
[2019-09-18] MEDS: LACTATED RINGERS 1,000 ML IVS ONE (09:15)
[2019-09-18] MEDS ORDERED: PROPOFOL 200 MG/20 ML VIAL IV ONE (10:00)
[2019-09-18] MEDS ORDERED: LIDOCAINE 1% 10 ML VIAL INJ ONE (10:00)
--- NOTE | 2019-09-18 11:20 | OP ---
DATE OF PROCEDURE: 09/18/19 PREPROCEDURE DIAGNOSIS: 1. Epigastric pain. 2. History of black stools. 3. Screening colonoscopy. POSTPROCEDURE DIAGNOSIS: 1. Partially healed gastric ulcer at the antrum. 2. Normal colonoscopy. PROCEDURE: 1. EGD. 2. Colonoscopy. SURGEON: Patrice Collins MD ANESTHESIA: General. PROCEDURE: In lateral position with bite block in place, the endoscope was inserted to the posterior pharynx without difficulty, down the esophagus to the stomach. The duodenum was entered and appeared normal to the third portion. Sweep was normal with no evidence of ulcers. There was an apparent approximately 1 cm partially healed ulcer in the posterior portion of the antrum. A biopsy was taken of this area. There was some evidence of gastritis and another biopsy was taken that will be sent for H. pylori. Retroflexion was normal with no evidence of hiatal hernia, no other abnormalities in the stomach. Upon withdrawal, the GE junction was normal, as was the esophagus. The patient was then repositioned and colonoscopy performed. Digital rectal exam was normal. She had significant external and internal hemorrhoids, but no thrombosed hemorrhoids. The scope was successfully passed to the cecum as identified by the ileocecal valve and appendiceal orifice. Photos are not available at this time due to machine issues. Upon withdrawal and a very adequate prep, no polyps or abnormal mucosal surfaces were seen. The colon was desufflated upon exit. The patient tolerated the procedure, was awakened and taken to Recovery to be discharged. #[id number] [facility]
[2019-09-18 11:35] VITALS: BP 137/59; TEMP 96.8; O2SAT 97
== END 2019-09-18 11:35 | disposition home or self-care (01) ==
LOC: AMB 04:25
PROVIDERS: ATTEND Surgery
DX: R19.7 Diarrhea, unspecified (principal); K29.50 Unspecified chronic gastritis without bleeding; K25.9 Gastric ulcer, unspecified as acute or chronic, without hemorrhage or perforation; K64.4 Residual hemorrhoidal skin tags; K64.8 Other hemorrhoids; F32.9 Major depressive disorder, single episode, unspecified; E11.9 Type 2 diabetes mellitus without complications; I10 Essential (primary) hypertension; E03.9 Hypothyroidism, unspecified; K21.9 Gastro-esophageal reflux disease without esophagitis; Z88.0 Allergy status to penicillin; Z79.899 Other long term (current) drug therapy
CPT/HCPCS: 00813; 36416; 43239; 45378; 82948; 88305; 88342; J3490; J7120